=== PATIENT | male | born 1970 | race Two or more races ===

== ENCOUNTER 2016-10-24 09:40 | Emergency (ER) | payer MEDICAID, OTHER ==
[~2016-10-24] VITALS: Ht 182.9 cm; Wt 76.7 kg
[2016-10-24] MEDS ORDERED: ALBUTEROL SULF 2.5 MG/0.5ML(0.5%) NEB SOLN NEB ONE ×2 (13:30→15:30)
[2016-10-24] MEDS ORDERED: IPRATROPIUM BROM 0.5 MG/2.5ML INH SOL NEB ONE ×2 (13:30→15:30)
[2016-10-24] MEDS ORDERED: methylPREDNISolone SOD SUCC 125 MG/2 ML VL IV ONE ×2 (13:45→16:30)
[2016-10-24 14:42] LABS: Urine Bilirubin Negative (Negative); Urine Blood Negative /uL (Negative); Urine Color Yellow (Yellow); Urine Glucose Normal (Normal); Urine Ketone Negative (Negative); Urine Nitrite Negative (Negative); Urine RBC <1 /hpf (0 - 3); Urine Urobilinogen Normal (Negative); Urine pH 5.5 (5.0-8.0)
[2016-10-24] MEDS ORDERED: methylPREDNISolone SOD SUCC 125 MG/2 ML VL IM ONE (15:30)
[2016-10-24 16:15] VITALS: BP 135/91
== END 2016-10-24 17:11 | disposition home or self-care (01) ==
LOC: ER 09:43
DX: J44.1 Chronic obstructive pulmonary disease with (acute) exacerbation (principal); J45.909 Unspecified asthma, uncomplicated; F15.10 Other stimulant abuse, uncomplicated
CPT/HCPCS: 81001; 93005; 94640; 96374; 96376; 99285; G0434; J2930

== ENCOUNTER 2017-03-18 21:08 | Emergency (ER) | payer MEDICAID, OTHER ==
[~2017-03-18] VITALS: Ht 182.9 cm; Wt 74.8 kg
[2017-03-18 21:22] VITALS: BP 133/93
[2017-03-18 21:44] LABS: CONDITION Y; DEFINITIVE SEE PRINTOUT; Hematocrit 44.5 % (41.0-53.0); Hemoglobin 15.1 g/dL (13.5-17.5); Mean Corpuscular Hemoglobin 32.1 pg (28.0-32.0); Mean Corpuscular Hgb Conc. 33.8 g/dL (32.0-36.0); Mean Corpuscular Volume 95.1 fL (80.0-100.0); Mean Platelet Volume 8.2 fL (7.4-10.4); Platelet Count (auto) 272 10^3/uL (140-450); Red Cell Distribution Width 13.5 % (11.6-16.0); White Blood Cell 10.7 10^3/uL (4.4-10.8)
[2017-03-18 21:51] LABS: Metamyelocytes % 0; Myelocytes % 0; Promyelocytes % 0; Reactive Lymphocytes 0
[2017-03-18 22:13] LABS: Albumin 3.8 g/dL (3.4-5.0); Alkaline Phosphatase 78 U/L (45-117); Anion Gap 6 (5-15); Aspartate Aminotransferase 14 U/L (15-37); BUN/Creatinine Ratio 11.9; Bilirubin, Total 0.2 mg/dL (0.2-1.0); Blood Urea Nitrogen 13 mg/dL (7-18); Calcium 8.6 mg/dL (8.5-10.1); Carbon Dioxide 29 mmol/L (21-32); Chloride 106 mmol/L (98-107); GFR African American 94 mL/min; GFR Non-African American 77 mL/min; Glucose 88 mg/dL (74-106); Potassium 3.3 mmol/L (3.5-5.1); Sodium 141 mmol/L (136-145); Total Protein 7.3 g/dL (6.4-8.2)
[2017-03-18 22:17] LABS: B-Type Natriuretic Peptide 5.83 pg/mL (0-100)
[2017-03-18 22:25] LABS: Temperature: 23.1 C (20.0-25.0)
[2017-03-18 23:06] LABS: Platelet Estimate Adequate; RBC Morphology Normal
== END 2017-03-19 05:26 | disposition left against medical advice (07) ==
LOC: ER 21:15
DX: R06.02 Shortness of breath (principal); Z53.21 Procedure and treatment not carried out due to patient leaving prior to being seen by health care provider
CPT/HCPCS: 36415; 71020; 80053; 83880; 84484; 85007; 85027; 85379; 87040; 93005

== ENCOUNTER 2017-03-19 08:15 | Emergency (ER) | payer MEDICAID, OTHER ==
[~2017-03-19] VITALS: Ht 182.9 cm; Wt 74.8 kg
[2017-03-19 08:31] VITALS: BP 140/86
[2017-03-19] MEDS ORDERED: IPRATROPIUM BROM 0.5 MG/2.5ML INH SOL NEB ONE (09:15)
[2017-03-19] MEDS ORDERED: ALBUTEROL SULF 2.5 MG/0.5ML(0.5%) NEB SOLN NEB ONE (09:15)
[2017-03-19] MEDS ORDERED: methylPREDNISolone SOD SUCC 125 MG/2 ML VL IM ONE (09:15)
== END 2017-03-19 10:10 | disposition home or self-care (01) ==
LOC: ER 08:15
DX: J44.9 Chronic obstructive pulmonary disease, unspecified (principal)
CPT/HCPCS: 93005; 94640; 96372; 99283; J2930

== ENCOUNTER 2019-05-17 04:51 | Inpatient (IN) | payer MEDICAID, OTHER ==
[~2019-05-17] VITALS: Ht 182.9 cm; Wt 84.9 kg
[2019-05-17] MEDS ORDERED: ALBUTEROL SULF 2.5 MG/0.5ML(0.5%) NEB SOLN NEB ONE ×3 (05:45→08:00)
[2019-05-17] MEDS ORDERED: IPRATROPIUM BROM 0.5 MG/2.5ML INH SOL NEB ONE ×3 (05:45→08:00)
[2019-05-17] MEDS ORDERED: SODIUM CHLORIDE 0.9% 1,000 ML IV ONE (06:30)
[2019-05-17] MEDS ORDERED: methylPREDNISolone SOD SUCC 125 MG/2 ML VL IV ONE (06:30)
[2019-05-17] MEDS: MAGNESIUM SULFATE 1GM/100ML 100 ML IV SCH ×2 (06:39→07:49)
[2019-05-17 07:22] LABS: Basophils # (auto) 0.1 uL; Basophils % (auto) 0.8 % (0.0-2.0); Eosinophils # (auto) 0.8 uL; Eosinophils % (auto) 5.9 % (0.0-7.0); Hematocrit 46.1 % (41.0-53.0); Hemoglobin 15.9 g/dL (13.5-17.5); Lymphocytes % (auto) 14.9 % (10.0-50.0); Mean Corpuscular Hemoglobin 31.7 pg (28.0-32.0); Mean Corpuscular Hgb Conc. 34.5 g/dL (32.0-36.0); Mean Corpuscular Volume 92.1 fL (80.0-100.0); Monocytes # (auto) 1.1 uL; Monocytes % (auto) 7.9 % (0.0-12.0); Neutrophils # (auto) 9.4 uL; Neutrophils % (auto) 70.5 % (37.0-80.0); Nucleated Red Blood Cells % 0.2 %; Platelet Count (auto) 242 10^3/uL (140-450); Red Blood Cells 5.01 10^6/uL (4.5-5.90); Red Cell Distribution Width 12.9 % (11.8-14.3); White Blood Cell 13.3 10^3/uL (4.4-10.8)
[2019-05-17 07:35] LABS: Alanine Aminotransferase 32 U/L (16-61); Albumin 4.1 g/dL (3.4-5.0); Anion Gap 12 (5-15); Blood Urea Nitrogen 24 mg/dL (7-18); Calcium 8.9 mg/dL (8.5-10.1); Carbon Dioxide 24 mmol/L (21-32); Chloride 98 mmol/L (98-107); Glucose 103 mg/dL (74-106); Magnesium 2.7 mg/dL (1.6-2.6); Potassium 3.9 mmol/L (3.5-5.1); Sodium 134 mmol/L (136-145)
[2019-05-17 07:40] LABS: Alkaline Phosphatase 105 U/L (45-117); Aspartate Aminotransferase 21 U/L (15-37); BUN/Creatinine Ratio 20.9; Bilirubin, Total 1.1 mg/dL (0.2-1.0); GFR African American 87 mL/min; GFR Non-African American 72 mL/min; Total Protein 8.2 g/dL (6.4-8.2)
[2019-05-17 09:40] LABS: Urine Bacteria NONE SEEN /hpf (None Seen); Urine Blood Negative /uL (Negative); Urine Mucus FEW (None Seen); Urine WBC 1 /hpf (0 - 3)
[2019-05-17 09:58] LABS: Alcohol, Urine < 3.0 mg/dL (0-5); Amphetamine Screen, Urine POSITIVE (NEGATIVE); Barbiturate Scree,Urine NEGATIVE (NEGATIVE); Benzodiazephine Screen, Urine NEGATIVE (NEGATIVE); Cannabinoid Screen, Urine NEGATIVE (NEGATIVE); Cocaine Screen, Urine NEGATIVE (NEGATIVE); Opiate Scree,Urine NEGATIVE (NEGATIVE); Phencyclidine Screen, Urine NEGATIVE (NEGATIVE)
[2019-05-17] MEDS ORDERED: ACETAMINOPHEN 500 MG TAB PO PRN (11:30)
[2019-05-17] MEDS ORDERED: ONDANSETRON HCL 4 MG/2 ML VIAL IV PRN (11:30)
[2019-05-17] MEDS ORDERED: MORPHINE SULF INJ 2 MG/ML SYRINGE 1ML IV PRN ×2 (11:30)
[2019-05-17] MEDS ORDERED: NITROGLYCERIN 0.4 MG SL TAB SL PRN (11:30)
[2019-05-17] MEDS ORDERED: ALPRAZolam 0.25 MG TAB PO PRN (11:30)
[2019-05-17] MEDS: SODIUM CHLORIDE 0.9% 1,000 ML IV SCH ×2 (11:33→21:35)
--- NOTE | 2019-05-17 12:33 | NUR ---
Pt Arrived on Unit Pt arrived on unit via stretcher and was able to ambulate to bed without difficulty. Pt is a/ox4 on 4 L NC. Pt is sitting in tri-pod position and has mild/moderate SOB. Safety measures maintained with call light within reach, bed in lowest position, and side rails up. Will continue to monitor for changes q1hr and prn.
[2019-05-17 13:01] VITALS: BP 136/99
--- NOTE | 2019-05-17 13:06 | NUR ---
Pt Requesting Breathing Treatment Paged RT; will continue to monitor.
[2019-05-17 13:08] VITALS: BP 136/80
[2019-05-17] MEDS: IPRATROPIUM BROM 0.5 MG/2.5ML INH SOL NEB SCH ×3 (13:18→21:54)
[2019-05-17] MEDS: ALBUTEROL SULF 2.5 MG/0.5ML(0.5%) NEB SOLN NEB SCH ×3 (13:18→21:54)
--- NOTE | 2019-05-17 13:49 | NUR ---
Rapid Influenza A and B sent to Lab
[2019-05-17] MEDS ORDERED: AZITHROMYCIN 500MG/ 250ML 250 ML IV SCH (15:00)
[2019-05-17] MEDS: cefTRIAXone 1GM/50ML D5W 50 ML IV SCH (15:43)
[2019-05-17 15:53] VITALS: BP 136/80
[2019-05-17 16:12] VITALS: BP 120/91
[2019-05-17] MEDS: AZITHROMYCIN 500MG/ 250ML 250 ML IV SCH (16:26)
[2019-05-17] MEDS: BUDESONIDE (INHALATION) 0.5 MG/2 ML NEB NEB SCH (18:18)
--- NOTE | 2019-05-17 20:30 | NUR ---
RECEIVE IN BED ASLEEP BUT IS EASILY AROUSABLE NO VOICED COMPLAINT
[2019-05-17] MEDS: methylPREDNISolone SOD SUCC 40 MG/ML VL IV SCH (21:34)
[2019-05-17] MEDS: HYDROcodone-ACET 5/325MG TAB PO PRN (21:35)
[2019-05-17 22:00] VITALS: BP 142/94
[2019-05-18 05:00] VITALS: BP 118/64
[2019-05-18 05:24] LABS: Basophils # (auto) 0 uL; Basophils % (auto) 0.1 % (0.0-2.0); Eosinophils # (auto) 0 uL; Hematocrit 42.2 % (41.0-53.0); Hemoglobin 14.6 g/dL (13.5-17.5); Lymphocytes # (auto) 0.5 uL; Lymphocytes % (auto) 4.5 % (10.0-50.0); Mean Corpuscular Hemoglobin 32.2 pg (28.0-32.0); Mean Corpuscular Hgb Conc. 34.7 g/dL (32.0-36.0); Mean Corpuscular Volume 92.9 fL (80.0-100.0); Monocytes # (auto) 0.2 uL; Monocytes % (auto) 2.2 % (0.0-12.0); Neutrophils # (auto) 9.5 uL; Neutrophils % (auto) 93.2 % (37.0-80.0); Platelet Count (auto) 213 10^3/uL (140-450); Red Blood Cells 4.54 10^6/uL (4.5-5.90); Red Cell Distribution Width 13.1 % (11.8-14.3); White Blood Cell 10.2 10^3/uL (4.4-10.8)
[2019-05-18 05:49] LABS: BUN/Creatinine Ratio 15.9; Calcium 8.9 mg/dL (8.5-10.1); Potassium 4.3 mmol/L (3.5-5.1)
[2019-05-18] MEDS: IPRATROPIUM BROM 0.5 MG/2.5ML INH SOL NEB SCH ×5 (06:49→22:18)
[2019-05-18] MEDS: ALBUTEROL SULF 2.5 MG/0.5ML(0.5%) NEB SOLN NEB SCH ×5 (06:49→22:18)
--- NOTE | 2019-05-18 08:00 | NUR ---
OPENING SHIFT NOTE ASSUMED CARE OF PATIENT. PATIENT AWAKE AND ALERT & ORIENTED X4. NO SOB OR SIGNS OF DISTRESS NOTED. INSTRUCTED ON POC AND TO CALL FOR ASSISTANCE PRN. BED IN LOWEST POSITION WITH SIDE RAILS UP X2. WILL CONTINUE TO MONITOR.
[2019-05-18 09:00] VITALS: BP 116/85
[2019-05-18] MEDS: FAMOTIDINE 20 MG TAB PO SCH (10:19)
[2019-05-18] MEDS: AZITHROMYCIN 500MG/ 250ML 250 ML IV SCH (10:20)
[2019-05-18] MEDS: methylPREDNISolone SOD SUCC 40 MG/ML VL IV SCH ×2 (10:20→21:56)
[2019-05-18] MEDS: HYDROcodone-ACET 5/325MG TAB PO PRN ×2 (10:20→20:18)
[2019-05-18] MEDS: cefTRIAXone 1GM/50ML D5W 50 ML IV SCH (10:20)
[2019-05-18] MEDS: SODIUM CHLORIDE 0.9% 1,000 ML IV SCH ×2 (10:27→16:58)
[2019-05-18] MEDS: BUDESONIDE (INHALATION) 0.5 MG/2 ML NEB NEB SCH ×2 (10:29→18:28)
[2019-05-18 13:07] VITALS: BP 114/71
[2019-05-18 17:00] VITALS: BP 123/73
--- NOTE | 2019-05-18 18:32 | NUR ---
RT NOTE PT W SEEN BY RT FOR HHN TX. PT TOLERATES WELL VIA MASK. NO ADVERSE REACTION NOTED. CONT ORDERED POX 94% Addendum: 05/18/19 at 1833 by Susan Turner RT Amended: Links added.
--- NOTE | 2019-05-18 19:25 | NUR ---
Opening Shift Note Assumed care of patient, awake and alert. No S/S of distress/SOB. The patient c/o left rib pain which he reports as a 6/10 severity. The patient request pain medication. Will treat with PRN [place]. Instructed on POC and to call for assist PRN, will continue to monitor for changes Q1hr and PRN.
[2019-05-18 22:00] VITALS: BP 117/77
--- NOTE | 2019-05-18 22:19 | NUR ---
RT NOTE PT WAS SEEN BY RT FOR HHN TX. PT TOLERATES WELL VIA MASK. NO ADVERSE REACTION NOTED. CONT ORDERED. POX 94% Addendum: 05/18/19 at 2220 by Susan Turner RT Amended: Links added.
[2019-05-19 05:00] VITALS: BP 121/72
[2019-05-19 05:50] LABS: Basophils # (auto) 0 uL; Eosinophils # (auto) 0 uL; Hematocrit 41.4 % (41.0-53.0); Lymphocytes # (auto) 0.6 uL; Lymphocytes % (auto) 5.1 % (10.0-50.0); Mean Corpuscular Hemoglobin 31.2 pg (28.0-32.0); Mean Corpuscular Hgb Conc. 33.8 g/dL (32.0-36.0); Mean Corpuscular Volume 92.5 fL (80.0-100.0); Monocytes # (auto) 0.4 uL; Monocytes % (auto) 3.3 % (0.0-12.0); Neutrophils # (auto) 11.4 uL; Neutrophils % (auto) 91.6 % (37.0-80.0); Platelet Count (auto) 213 10^3/uL (140-450); Red Blood Cells 4.47 10^6/uL (4.5-5.90); Red Cell Distribution Width 13.2 % (11.8-14.3); White Blood Cell 12.4 10^3/uL (4.4-10.8)
[2019-05-19 06:11] LABS: BUN/Creatinine Ratio 16.9; Calcium 8.7 mg/dL (8.5-10.1); Magnesium 2.5 mg/dL (1.6-2.6)
[2019-05-19] MEDS: ALBUTEROL SULF 2.5 MG/0.5ML(0.5%) NEB SOLN NEB SCH ×5 (06:40→22:41)
[2019-05-19] MEDS: IPRATROPIUM BROM 0.5 MG/2.5ML INH SOL NEB SCH ×5 (06:40→22:41)
--- NOTE | 2019-05-19 07:30 | NUR ---
Opening Shift Note RECEIVED REPORT FROM NOC RN. Assumed care of patient, awake and alert. PATIENT ON OXYGEN AT 4 LPM VIA NASAL CANNULA WITH no S/S of distress/SOB or pain. BED IN LOWEST, LOCKED POSITION WITH SIDERAILS UP x2 AND CALL LIGHT WITHIN REACH. Instructed on POC and to call for assist PRN, will continue to monitor for changes Q1hr and PRN.
[2019-05-19] MEDS: SODIUM CHLORIDE 0.9% 1,000 ML IV SCH (08:39)
[2019-05-19 09:00] VITALS: BP 133/90
[2019-05-19] MEDS: BUDESONIDE (INHALATION) 0.5 MG/2 ML NEB NEB SCH ×2 (10:14→22:41)
[2019-05-19] MEDS: cefTRIAXone 1GM/50ML D5W 50 ML IV SCH (10:16)
[2019-05-19] MEDS: FAMOTIDINE 20 MG TAB PO SCH (10:17)
[2019-05-19] MEDS: AZITHROMYCIN 250 MG TAB PO SCH (10:17)
[2019-05-19] MEDS: methylPREDNISolone SOD SUCC 40 MG/ML VL IV SCH ×2 (10:17→21:20)
[2019-05-19 17:00] VITALS: BP 119/81
--- NOTE | 2019-05-19 19:05 | NUR ---
OPENING NOTE Received report from day shift RN. Patient is resting in bed with no s/s of SOB or distress. Educated patient on POC and to use call light when in need of assistance. Patient verbalized understanding. Bed is in lowest/locked position with side rails up X's 2 and call light is within reach of patient. Will round hourly and continue care.
[2019-05-19 22:00] VITALS: BP 112/67
[2019-05-20] MEDS: SODIUM CHLORIDE 0.9% 1,000 ML IV SCH (01:37)
[2019-05-20 05:00] VITALS: BP 125/78
[2019-05-20] MEDS: ALBUTEROL SULF 2.5 MG/0.5ML(0.5%) NEB SOLN NEB SCH ×2 (06:41→10:02)
[2019-05-20] MEDS: IPRATROPIUM BROM 0.5 MG/2.5ML INH SOL NEB SCH ×2 (06:41→10:02)
[2019-05-20 06:57] LABS: Basophils # (auto) 0 uL; Basophils % (auto) 0.2 % (0.0-2.0); Eosinophils # (auto) 0 uL; Eosinophils % (auto) 0.1 % (0.0-7.0); Hematocrit 42.2 % (41.0-53.0); Hemoglobin 14.6 g/dL (13.5-17.5); Lymphocytes # (auto) 0.8 uL; Lymphocytes % (auto) 8.1 % (10.0-50.0); Mean Corpuscular Hemoglobin 31.9 pg (28.0-32.0); Mean Corpuscular Hgb Conc. 34.7 g/dL (32.0-36.0); Mean Corpuscular Volume 91.8 fL (80.0-100.0); Monocytes # (auto) 0.5 uL; Monocytes % (auto) 4.6 % (0.0-12.0); Platelet Count (auto) 214 10^3/uL (140-450); Red Blood Cells 4.59 10^6/uL (4.5-5.90); White Blood Cell 10.4 10^3/uL (4.4-10.8)
--- NOTE | 2019-05-20 07:30 | NUR ---
Opening Shift Note RECEIVED REPORT FROM NOC RN. Assumed care of patient, awake and alert. PATIENT ON OXYGEN AT 2 LPM VIA NASAL CANNULA WITH no S/S of distress/SOB or pain. BED IN LOWEST, LOCKED POSITION WITH SIDERAILS UP x2 AND CALL LIGHT WITHIN REACH. Instructed on POC and to call for assist PRN, will continue to monitor for changes Q1hr and PRN.
[2019-05-20 09:00] VITALS: BP 118/74
[2019-05-20] MEDS: BUDESONIDE (INHALATION) 0.5 MG/2 ML NEB NEB SCH (10:02)
[2019-05-20] MEDS: FAMOTIDINE 20 MG TAB PO SCH (10:09)
[2019-05-20] MEDS: AZITHROMYCIN 250 MG TAB PO SCH (10:09)
[2019-05-20] MEDS: methylPREDNISolone SOD SUCC 40 MG/ML VL IV SCH (10:09)
[2019-05-20] MEDS ORDERED: AZIT500T PO (10:40)
== END 2019-05-20 13:15 | disposition home or self-care (01) | DRG 140 ==
LOC: EDBD 04:51 → ER 04:51 → TELE 04:52 → TELE-WESTW 12:27
PROVIDERS: ADMIT Nurse Practitioner Acute Care; ATTEND Internal Medicine
DX: J44.0 Chronic obstructive pulmonary disease with (acute) lower respiratory infection (principal); J96.00 Acute respiratory failure, unspecified whether with hypoxia or hypercapnia; N18.3 Chronic kidney disease, stage 3 (moderate); R65.10 Systemic inflammatory response syndrome (SIRS) of non-infectious origin without acute organ dysfunction; J44.1 Chronic obstructive pulmonary disease with (acute) exacerbation; J20.9 Acute bronchitis, unspecified; F17.210 Nicotine dependence, cigarettes, uncomplicated; E66.9 Obesity, unspecified; F15.10 Other stimulant abuse, uncomplicated; Z68.25 Body mass index [BMI] 25.0-25.9, adult; Z88.0 Allergy status to penicillin; Z71.6 Tobacco abuse counseling; Z71.51 Drug abuse counseling and surveillance of drug abuser; Z79.899 Other long term (current) drug therapy
CPT/HCPCS: 36415; 71045; 80048; 80053; 80307; 81001; 83735; 83880; 84484; 85025; 85379; 87804; 93005; 93306; 94003; 94640; 99291; G0378; J0696